=== PATIENT | female | born 2000 | race Caucasian/White ===

== ENCOUNTER 2018-08-30 05:55 | Emergency (ER) | payer MEDICAID ==
[~2018-08-30] VITALS: Ht 160 cm; Wt 47.6 kg
[2018-08-30 06:00] VITALS: BP_SYST 120
--- NOTE | 2018-08-30 06:10 | NUR ---
Patient to ER bed 7 to gown for evaluation. Side rails up.
--- NOTE | 2018-08-30 06:13 | NUR ---
Cathy MILLER notified.
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
--- NOTE | 2018-08-30 06:30 | NUR ---
ER Dr. Desai at bedside examining patient.
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
[2018-08-30] MEDS ORDERED: LIDOCAINE 1%, 20 ML MDV 20 ML ONE (06:50)
--- NOTE | 2018-08-30 07:07 | NUR ---
Report given to Clau BUTT for continuation of care.
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
[2018-08-30 08:30] VITALS: BP_SYST 126
--- NOTE | 2018-08-30 08:30 | NUR ---
Patient to be transferred to [facility]. Is being transferred due to higher level of care. Receiving facility has accepting physician and available space. ER physician has signed transfer form. Patient or responsible democrat has agreed to transfer and signed form. Patient belongings inventoried and will be sent with patient. Copy of nursing notes, lab reports, EKG, Physicians Orders and X-rays to be sent with patient. Report called to Matilda (ED charge) at receiving facility. [facility] has been called for transfer.
== END 2018-08-30 08:30 | disposition short-term general hospital (02) ==
LOC: SED 05:55
DX: S61.512A Laceration without foreign body of left wrist, initial encounter (principal); Y04.0XXA Assault by unarmed brawl or fight, initial encounter; Y93.89 Activity, other specified; Y92.89 Other specified places as the place of occurrence of the external cause; Y99.8 Other external cause status
CPT/HCPCS: 99285; J2001